=== PATIENT | female | born 1975 | race Caucasian/White ===

== ENCOUNTER 2022-09-03 11:03 | Inpatient (IN) ==
[2022-09-03] MEDS ORDERED: IOPAMIDOL 100 ML BOTTLE IV ONE (11:04)
--- NOTE | 2022-09-03 11:20 | Emergency Department Note ---
HPI General Chief complaint: Abdominal Pain Stated complaint: stomach issues Time Seen by Provider: 09/03/22 11:19 Source: patient Mode of arrival: ambulatory Limitations: no limitations History of Present Illness HPI Narrative: Narrative: Patient is a 47-year-old female with a past medical history significant for gastritis, esophagitis, and bowel obstruction who presents to the emergency department due to nausea, vomiting, abdominal pain, and diarrhea. She states that she has had pain for 3 months that she describes as feeling like a shotgun went off in her abdomen. She states that the pain is most significant in the epigastric region and is sometimes sharp and sometimes dull. She states that it is sharp when she is moving, and dull at rest. She also endorses a burning epigastric pain and burning in her chest when she is lying flat at night. She states that she has taken Maalox and this seems to improve her symptoms, but only for a brief period of time. She states that her pain does not radiate other than down in the abdomen. She states that her vomit is what she eats, and denies dark-colored vomit or dark tarry stool. She also denies blood in her stool. She denies any other concerns at this time. Related Data Home Medications Medication Instructions Recorded Confirmed trazodone 100 mg tablet 50 mg PO HS 10/06/18 09/03/22 diazepam 5 mg tablet 1 tab PO QDP 09/03/22 09/03/22 duloxetine 30 mg capsule,delayed 1 cap PO QDAY 09/03/22 09/03/22 release esomeprazole magnesium 40 mg 1 cap PO QDAY 09/03/22 09/03/22 capsule,delayed release hydroxyzine pamoate 50 mg capsule 2 cap PO BID 09/03/22 09/03/22 magnesium hydroxide 400 mg/5 mL 400 mg PO PRN PRN Indigestion 09/03/22 09/03/22 oral suspension (Milk of Magnesia) Allergies Allergy/AdvReac Type Severity Reaction Status Date / Time budesonide [From Symbicort] Allergy Intermediate Swelling Verified 09/03/22 1 1:10 of Lip/Tongue/Throat Formoterol [From Symbicort] Allergy Intermediate Swelling Verified 09/03/22 11:10 of Lip/Tongue/Throat steri-strips AdvReac Intermediate Blister Uncoded 01/21/19 22:11 Review of Systems ROS ROS Narrative: Narrative: Constitutional: Denies fever or weakness Eyes: Denies eye pain or vision change ENT ED: Denies throat pain, hearing loss or rhinorrhea Cardiovascular: Denies chest pain or edema Respiratory: Denies shortness of breath or cough Gastrointestinal: Reports abdominal pain, nausea, vomiting and diarrhea; Denies constipation, hematochezia or melena Musculoskeletal: Denies back pain or myalgia Integumentary: Denies rash or lesions Neurological: Denies headache, weakness, numbness, confusion, abnormal gait or dizziness Endocrine: Denies fatigue or polyuria Hematological/Lymphatic: Denies easy bleeding or easy bruising PFS Narrative Patient History Narrative: Narrative: Medical/Surgical/Family History All Active Problems (Updated 09/04/22 @ 08:15 by Miguel Isabel MD) Partial small bowel obstruction (Acute) Continuous severe abdominal pain (Acute) Headache (Acute) Minor head injury (Acute) Upper respiratory infection (Acute) Cellulitis (Acute) Otitis externa (Acute) Fracture of base of fifth metacarpal bone of right hand (Acute) Gastroenteritis (Acute) Methamphetamine abuse (Acute) Abdominal pain (Acute) Acute psychosis (Acute) Bipolar disorder (Acute) Self-harming behavior (Acute) Anxiety (Acute) Hallucinations of tactile sensation (Acute) Auditory hallucination (Acute) Visual hallucination (Acute) Paranoia (Acute) Medical History Anxiety Left shoulder strain Social History Smoking Status: Current every day smoker Exam Narrative Narrative: Narrative: General Limitations: no limitations General appearance: Present alert and in no apparent distress; Absent anxious, appears intoxicated or sleepy Head Head: Present atraumatic and normocephalic Eye Eye: Present EOMI; Absent scleral icterus or nystagmus ENT ENT: Present mucous membranes moist; Absent nasal congestion Neck Neck: Present full ROM; Absent tenderness Chest Chest: Present normal inspection and symmetric chest wall rise; Absent tenderness Respiratory Respiratory: Present normal lung sounds bilaterally; Absent respiratory distress or accessory muscle use Cardiovascular Cardiovascular: Present regular rate, normal rhythm and normal heart sounds Adbominal Abdominal: Present soft, tenderness, guarding and normal bowel sounds; Absent distention, rebound or rigidity Extremities Extremities: Present normal inspection and full ROM Back Back: Present normal inspection and full ROM Neurological Neurological: Present alert and oriented X3 Psychiatric Psychiatric: Present normal affect and normal mood Skin Skin: Present warm (WNL), dry and normal color Course Vital Signs Vital signs: Vital Signs Temperature 97.7 F 09/03/22 11:08 Pulse Rate 100 H 09/03/22 11:08 Respiratory Rate 16 09/03/22 11:08 Blood Pressure 121/79 09/03/22 11:08 Pulse Oximetry (%) 97 09/03/22 11:08 Oxygen Delivery Method 09/03/22 11:08 Temperature 98 F 09/04/22 08:00 Pulse Rate 59 L 09/04/22 08:00 Respiratory Rate 16 09/04/22 08:00 Blood Pressure 146/87 09/04/22 08:00 Pulse Oximetry (%) 100 09/04/22 08:00 Oxygen Delivery Method 09/04/22 08:00 MDM MDM Narrative Medical decision making narrative: Narrative: Patient is a 47-year-old female with a past medical history significant for gastritis, esophagitis, and bowel obstruction who presents to the emergency department due to nausea, vomiting, abdominal pain, and diarrhea. Differential diagnoses include gastritis, esophagitis, peptic ulcer disease, pancreatitis, liver disease, and less likely small bowel obstruction. Patient's labs are positive for mild leukocytosis. CT scan demonstrates partial small bowel obstruction. I have spoken to Dr. Cuellar about this patient and he has agreed to see and evaluate patient for admission. Lab Data Result diagrams: 09/03/22 11:26 09/04/22 05:11 Labs: Lab Results 09/03/22 09/03/22 09/03/22 Range/Units 11:26 11:26 11:36 WBC 13.4 H (4.5-11.0) K/mcL RBC 5.23 (3.59-5.38) M/mcL Hgb 14.1 (11.2-15.7) g/dL Hct 42.8 (34.1-44.9) % POC Hct (36-48) MCV 81.8 (80.0-100.0) fL MCH 27.0 (26.0-34.0) pg MCHC 32.9 (31.0-36.0) g/dL RDW 13.6 (11.5-14.5) % Plt Count 332 (140-440) K/mcL MPV 9.7 (8.8-12.5) fL Immature Gran % (Auto) 0.2 (0.0-0.5) % Neut % (Auto) 59.3 (38.0-78.0) % Lymph % (Auto) 31.1 (15.5-49.0) % [place] % (Auto) 4.4 (1.0-12.0) % Eos % (Auto) 4.4 (0.0-7.0) % Baso % (Auto) 0.6 (0.0-2.0) % Lymph # (Auto) 4.16 (1.50-4.80) K/mcL [place] # (Auto) 0.59 (0.10-0.90) K/mcL Eos # (Auto) 0.59 (0.00-0.70) K/mcL Baso # (Auto) 0.08 (0.00-0.30) K/mcL Immature Gran # 0.03 (0.00-0.05) K/mcl Absolute Neutrophils 7.93 (1.80-8.00) K/mcL VBG Lactic Acid (0.5-2.0) mmol/L POC Sodium (133-145) POC Potassium (3.3-5.1) POC Chloride (96-108) POC Total CO2 (22-30) POC BUN (6-20) POC Creatinine (0.6-1.2) POC Glucose (70-105) POC WB Ioniz Calcium (1.16-1.32) Total Bilirubin 0.5 (0.1-1.0) mg/dL Direct Bilirubin < 0.2 (0-0.3) mg/dL AST 13 (<32) U/L ALT 7 (<40) U/L Alkaline Phosphatase 84 (39-117) U/L C-Reactive Protein (0.03-0.80) mg/dL Total Protein 7.4 (5.9-8.4) gm/dL Albumin 4.5 (3.2-5.2) gm/dL Globulin 2.9 (2.2-3.7) gm/dL Lipase 36 (7-60) U/L Urine Color Yellow Urine Appearance Hazy A (Clear) Urine pH 5.0 (5.0-9.0) Ur Specific [place] 1.028 (1.000-1.035) Urine Protein 30 A (Negative) mg/dL Urine Glucose (UA) Negative (Negative) mg/dL Urine Ketones Negative (Negative) mg/dL Urine Occult Blood Negative (Negative) mg/dL Urine Nitrate Negative (Negative) Urine Bilirubin Negative (Negative) mg/dL Urine Urobilinogen Negative mg/dL Ur Leukocyte Esterase Negative (Negative) /uL Urine RBC < 1 (0-3) /hpf Urine WBC 2 (0-4) /hpf Ur Squamous Epith Cells 5 H (0-4) /hpf Urine Bacteria None (0) /hpf Hyaline Casts 3 H (0-2) /lph Urine Mucus Many A (None) /hpf Ur Culture Indicated? No 09/03/22 09/03/22 Range/Units 11:41 16:45 WBC (4.5-11.0) K/mcL RBC (3.59-5.38) M/mcL Hgb (11.2-15.7) g/dL Hct (34.1-44.9) % POC Hct 46.0 (36-48) MCV (80.0-100.0) fL MCH (26.0-34.0) pg MCHC (31.0-36.0) g/dL RDW (11.5-14.5) % Plt Count (140-440) K/mcL MPV (8.8-12.5) fL Immature Gran % (Auto) (0.0-0.5) % Neut % (Auto) (38.0-78.0) % Lymph % (Auto) (15.5-49.0) % [place] % (Auto) (1.0-12.0) % Eos % (Auto) (0.0-7.0) % Baso % (Auto) (0.0-2.0) % Lymph # (Auto) (1.50-4.80) K/mcL [place] # (Auto) (0.10-0.90) K/mcL Eos # (Auto) (0.00-0.70) K/mcL Baso # (Auto) (0.00-0.30) K/mcL Immature Gran # (0.00-0.05) K/mcl Absolute Neutrophils (1.80-8.00) K/mcL VBG Lactic Acid 0.6 (0.5-2.0) mmol/L POC Sodium 141 (133-145) POC Potassium 4.1 (3.3-5.1) POC Chloride 105 (96-108) POC Total CO2 24.0 (22-30) POC BUN 14 (6-20) POC Creatinine 0.9 (0.6-1.2) POC Glucose 95 (70-105) POC WB Ioniz Calcium 1.15 L (1.16-1.32) Total Bilirubin (0.1-1.0) mg/dL Direct Bilirubin (0-0.3) mg/dL AST (<32) U/L ALT (<40) U/L Alkaline Phosphatase (39-117) U/L C-Reactive Protein < 0.30 (0.03-0.80) mg/dL Total Protein (5.9-8.4) gm/dL Albumin (3.2-5.2) gm/dL Globulin (2.2-3.7) gm/dL Lipase (7-60) U/L Urine Color Urine Appearance (Clear) Urine pH (5.0-9.0) Ur Specific [place] (1.000-1.035) Urine Protein (Negative) mg/dL Urine Glucose (UA) (Negative) mg/dL Urine Ketones (Negative) mg/dL Urine Occult Blood (Negative) mg/dL Urine Nitrate (Negative) Urine Bilirubin (Negative) mg/dL Urine Urobilinogen mg/dL Ur Leukocyte Esterase (Negative) /uL Urine RBC (0-3) /hpf Urine WBC (0-4) /hpf Ur Squamous Epith Cells (0-4) /hpf Urine Bacteria (0) /hpf Hyaline Casts (0-2) /lph Urine Mucus (None) /hpf Ur Culture Indicated? EKG Data EKG #1: EKG attestation: Yes I reviewed and interpreted this EKG. EKG results narrative: Sinus bradycardia with a rate of 57, normal axis, UT of 200, QRS of 89, QTC of 431, T wave flattening in lead aVL, and absence of ST elevation or depression. Discharge Plan Patient/Caregiver Discharge Instructions Pt seen by RETREAD MOLD OPERATOR/PA only: No Clinical Impression: Partial small bowel obstruction Patient Disposition: Xfer As Inpt ([facility]) Discharge Date/Time: 09/03/22 18:22
[2022-09-03 11:45] LABS: POC Calcium, Ionized 1.15 (1.16-1.32); POC Creatinine 0.9 (0.6-1.2); POC Potassium 4.1 (3.3-5.1)
[2022-09-03] MEDS ORDERED: LACTATED RINGERS 1,000 ML IV ONE (11:49)
[2022-09-03 12:12] LABS: Basophils # (Auto) 0.08 K/mcL (0.00-0.30); Basophils % (Auto) 0.6 % (0.0-2.0); Eosinophils # (Auto) 0.59 K/mcL (0.00-0.70); Eosinophils % (Auto) 4.4 % (0.0-7.0); Hematocrit 42.8 % (34.1-44.9); Hemoglobin 14.1 g/dL (11.2-15.7); Lymphocytes # (Auto) 4.16 K/mcL (1.50-4.80); Lymphocytes % (Auto) 31.1 % (15.5-49.0); Mean Cell Volume 81.8 fL (80.0-100.0); Mean Corpuscular HGB Conc 32.9 g/dL (31.0-36.0); Mean Platelet Volume 9.7 fL (8.8-12.5); Monocytes # (Auto) 0.59 K/mcL (0.10-0.90); Monocytes % (Auto) 4.4 % (1.0-12.0); Neutrophils % (Auto) 59.3 % (38.0-78.0); Platelet Count 332 K/mcL (140-440); RBC 5.23 M/mcL (3.59-5.38); Red Cell Distribution Width 13.6 % (11.5-14.5); WBC 13.4 K/mcL (4.5-11.0)
[2022-09-03 12:24] LABS: Appearance,Urine HAZY (Clear); Bilirubin,Urine Negative (Negative); Color,Urine YELLOW; Culture Indicated,Urine No; Glucose,Urine (UA) Negative (Negative); Ketones,Urine Negative (Negative); Leukocyte Esterase,Urine Negative /uL (Negative); Mucus,Urine MANY /hpf; Nitrate,Urine Negative (Negative); Protein,Urine 30 mg/dL (Negative); Specific Gravity,Urine 1.028 (1.000-1.035); Urine Blood Negative (Negative); Urine Hyaline Cast 3 /lph (0-2); Urine RBC < 1 /hpf (0-3); Urine Squamous Epithelial Cell 5 /hpf (0-4); Urine WBC 2 /hpf (0-4); Urobilinogen,Urine Negative
[2022-09-03 12:55] LABS: ALT/SGPT 7 U/L (<40); AST/SGOT 13 U/L (<32); Albumin 4.5 gm/dL (3.2-5.2); Alkaline Phosphatase 84 U/L (39-117); Bilirubin,Direct < 0.2 mg/dL (0-0.3); Bilirubin,Total 0.5 mg/dL (0.1-1.0); Globulin 2.9 gm/dL (2.2-3.7)
[2022-09-03] MEDS ORDERED: FAMOTIDINE/PF 20 MG/2 ML VIAL IV ONE (13:22)
--- NOTE | 2022-09-03 13:33 | Cat Scan Report ---
CLINICAL INFORMATION: Abdominal pain COMPARISON: None. TECHNIQUE: Following enteric contrast, 80 cc of Isovue-370 were injected intravenously, and 60 seconds later, 0.625 mm helical slices were obtained from the mid heart through the subtrochanteric regions. Following reconstruction, 2.5 mm sagittal, coronal and axial reformatted images were processed and reviewed at bone, lung and soft tissue windows. Five minutes later, 0.625 mm helical slices were obtained from the mid heart through the kidneys and viewed at soft tissue windows.The exam was performed using radiation dose optimization techniques including, but not limited to, automated exposure control, adjustment of the mA and/or kV according to patient size and use of iterative reconstruction technique. FINDINGS: The lung bases show subsegmental atelectasis in the posterior lower lobes. Heart is normal in size with a small simple pericardial effusion which is unchanged. There are no pleural effusions. Abdominal images the gallbladder is surgically absent. Intrahepatic and common bile ducts are normal caliber: CBD is 6 mm. There is mild fatty change within the liver, but no focal hepatic lesions. Both kidneys, adrenal glands, spleen, pancreas and aorta, including aortic branches, are normal in size, configuration and attenuation without focal lesion. There is no free air, free fluid or adenopathy. Pelvic images show normal urinary bladder. Uterus and both ovaries are surgically absent. Small bowel is mildly dilated to a transition point in the mid ileum seen on axial image 121, coronal image 34 and sagittal image 61. There is abrupt narrowing into a decompressed distal ileum. Presumably, there is a stricture or adhesions in this region. The large bowel and stomach are grossly normal. Bone windows show no osseous abnormality IMPRESSION: 1. Partial small bowel obstruction of the mid ileum due to adhesions or stricture. 2. Small pericardial effusion-stable since 2018 Interpreted and Authenticated by: Hiren Burgos 09/03/22
[2022-09-03] MEDS ORDERED: ONDANSETRON 4 MG/2 ML VIAL IV ONE (14:04)
[2022-09-03] MEDS ORDERED: morphine 4 MG/ML VIAL IV ONE (14:04)
[2022-09-03] MEDS ORDERED: PROMETHAZINE 25 MG/ML VIAL IV PRN (16:27)
[2022-09-03] MEDS ORDERED: traZODone HCL 50 MG TABLET PO PRN ×2 (16:27→16:33)
[2022-09-03] MEDS ORDERED: ACETAMINOPHEN 325 MG TABLET PO PRN (16:27)
[2022-09-03] MEDS ORDERED: ONDANSETRON 4 MG/2 ML VIAL IV PRN (16:27)
--- NOTE | 2022-09-03 16:27 | General Surg History&Physical ---
HPI History of Present Illness Patient information: Note initiated : 09/03/22 at 4:16 pm Service Date, if different from initiated Date: [] Patient: Britany Augustin a 47 y/o F admitted on for stomach issues. Chief Complaint: [] Chief complaint: Chronic abdominal pain; recurrent nausea vomiting; partial small bowel obst History of present illness: Ms. Augustin is a 47 year old F with long history of midepigastric pain which has been present for many months. It is gotten much worse over the past few days. She initially had nausea vomiting and diarrhea and then developed primarily nausea and vomiting. She has had worsening abdominal pain. She has been unable to keep down food but has been able to tolerate liquids. When she has bowel movements they are primarily water. She has CT suggestive of partial distal small bowel obstruction but she also has dilated colon with gas and fecal matter extending to the rectum. Patient has been treated by GI for esophagitis and recurrent gastritis. She is admitted and will be treated nonoperatively. Constitutional Constitutional: Present headache(s), malaise, weakness and weight loss Cardiovascular Cardiovascular: Absent chest pain at rest, chest pain with activity, dyspnea on exertion, irregular heart rhythm, leg edema, pedal edema or rapid heart rate Respiratory Respiratory: Absent cough, dyspnea on exertion, wheezing or pain on inspirtation Gastrointestinal Gastrointestinal: Present abdominal pain, change in bowel habits, dyspepsia, heartburn, loose stools, nausea and vomiting Genitourinary Genitourinary: Absent urinary frequency, urinary hesitancy or urinary urgency Musculoskeletal Musculoskeletal: Absent arthralgias, myalgias or numbness Integumentary Integumentary: Present changing lesions, new lesions, non-healing lesions, pruritus, rash, skin ulcer, sores and unusual bruising Neurological Neurological: Present confusion Psychiatric Psychiatric: Present abnormal sleep pattern, anxiety, behavioral changes, depression, memory loss, mood swings, panic attacks, paranoia and visual hallucinations Endocrine Endocrine: Absent excessive sweating, fatigue, flushing or palpitations Hematologic/Lymphatic Hematologic/Lymphatic: Absent easy bleeding, easy bruising or lymphadenopathy Allergic/Immunologic Allergic/Immunologic: Absent tongue swelling, throat swelling, itchy eyes, uticaria, wheezing or lip swelling PFSH PFSH All Active Problems (Updated 09/03/22 @ 16:25 by Florence Cuellar MD) Continuous severe abdominal pain (Acute) Headache (Acute) Minor head injury (Acute) Upper respiratory infection (Acute) Cellulitis (Acute) Otitis externa (Acute) Fracture of base of fifth metacarpal bone of right hand (Acute) Gastroenteritis (Acute) Methamphetamine abuse (Acute) Abdominal pain (Acute) Acute psychosis (Acute) Bipolar disorder (Acute) Self-harming behavior (Acute) Anxiety (Acute) Hallucinations of tactile sensation (Acute) Auditory hallucination (Acute) Visual hallucination (Acute) Paranoia (Acute) Medical History Anxiety Left shoulder strain Social History smoking status: Current every day smoker MEDS/ALLERGIES Home Medications and Allergies Home Medications Medication Instructions Recorded Confirmed Type trazodone 100 mg tablet 50 mg PO HS 10/06/18 06/25/19 History lorazepam 1 mg tablet 1 mg PO DAILY 06/25/19 06/25/19 History ondansetron 4 mg disintegrating 4 mg SL Q4-6HP PRN Nausea #10 tabs 06/25/19 Rx tablet prochlorperazine maleate 10 mg 10 mg PO Q6H PRN Nausea #10 tabs 06/25/19 Rx tablet Allergies Allergy/AdvReac Type Severity Reaction Status Date / Time budesonide [From Symbicort] Allergy Intermediate Swelling Verified 09/03/22 11:10 of Lip/Tongue/Throat Formoterol [From Symbicort] Allergy Intermediate Swelling Verified 09/03/22 11:10 of Lip/Tongue/Throat steri-strips AdvReac Intermediate Blister Uncoded 01/21/19 22:11 Physical Examination Vital Signs Vital signs: Temp Pulse Resp BP Pulse Ox O2 Del Method 97.7 F 61 16 138/98 96 09/03/22 11:08 09/03/22 15:59 09/03/22 11:08 09/03/22 13:46 09/03/22 15:59 09/03/22 11:08 General physical appearance General physical exam: moderate distress and moderate pain Eyes Eye exam: PERRL and normal ocular movement ENT ENT exam: normal mucosa and no congestion Head Head exam IM: Present atraumatic, normal inspection and normocephalic Neck Neck exam: no masses, no bruits, trachea midline and no lymphadenopathy Cardiovascular Cardiovascular exam IM: Present normal rate and rhythm, RRR, +S1 and +S2; Absent JVD or tachycardia Respiratory Respiratory exam: normal expansion, normal respiratory effort and clear to au scultation Abdomen Abdomen: Present soft, tender, bowel sounds, organomegaly, surgical scars and wound; Absent masses or guarding Integumentary Integumentary: Present other (Extensive scarring of skin in various stages of healing involving face neck trunk and extremities) Neurologic Neurologic: Present normal coordination, normal sensation and other Musculoskeletal Musculoskeletal: Present normal gait and normal posture Psychiatric Psychiatric: Present oriented to time, oriented to person, oriented to place, speech is normal, memory intact and other (Extreme anxiety) Results Labs Result diagrams: 09/03/22 11:26 Labs: Abnormal lab results 09/03/22 09/03/22 09/03/22 Range/Units 11:26 11:36 11:41 WBC 13.4 H (4.5-11.0) K/mcL POC WB Ioniz Calcium 1.15 L (1.16-1.32) Urine Appearance Hazy A (Clear) Urine Protein 30 A (Negative) mg/dL Ur Squamous Epith Cells 5 H (0-4) /hpf Hyaline Casts 3 H (0-2) /lph Urine Mucus Many A (None) /hpf Diabetes panel 09/03/22 Range/Units 11:26 AST 13 (<32) U/L ALT 7 (<40) U/L Alkaline Phosphatase 84 (39-117) U/L Total Protein 7.4 (5.9-8.4) gm/dL Albumin 4.5 (3.2-5.2) gm/dL Calcium panel 09/03/22 Range/Units 11:26 Albumin 4.5 (3.2-5.2) gm/dL Adrenal panel 09/03/22 Range/Units 11:26 Total Bilirubin 0.5 (0.1-1.0) mg/dL AST 13 (<32) U/L ALT 7 (<40) U/L Alkaline Phosphatase 84 (39-117) U/L Total Protein 7.4 (5.9-8.4) gm/dL Albumin 4.5 (3.2-5.2) gm/dL All other labs normal. A/P Assessment and plan (1) Continuous severe abdominal pain: Status: Acute (2) Gastroenteritis: Status: Acute (3) Bipolar disorder: Status: Acute (4) Self-harming behavior: Status: Acute (5) Anxiety: Status: Acute (6) Hallucinations of tactile sensation: Status: Acute Plan IV normal saline at 150/h Reglan 10 mg IV every 6 hours Pantoprazole 40 mg IV every 12 hours Carafate slurry 1 g IV every 6 hours 2 view abdominal x-ray in the morning Continue psychotropic drugs Urine drug screen Sepsis Sepsis Identified: No Time Spent With Patient Time: Total time spent is greater than 50% in coordination of care (as documented) at patient's floor/unit and/or counseling patient:
[2022-09-03] MEDS: 0.9 % SODIUM CHLORIDE 1,000 ML IV SCH (16:48)
[2022-09-03] MEDS: LORazepam 2 MG/ML VIAL IV PRN (17:01)
[2022-09-03] MEDS: oxyCODONE HCL 5 MG TABLET PO PRN ×2 (17:01→20:53)
[2022-09-03 18:17] LABS: C-Reactive Protein < 0.30 mg/dL (0.03-0.80)
[2022-09-03] MEDS: hydrOXYzine 25 MG TABLET PO PRN (18:52)
[2022-09-03] MEDS: DIAZEPAM 5 MG TABLET PO PRN (18:52)
[2022-09-03] MEDS ORDERED: NICOTINE 14 MG PATCH TOPICAL SCH (20:00)
[2022-09-03] MEDS: DOCUSATE SODIUM 100 MG CAPSULE PO SCH (20:07)
[2022-09-03] MEDS: 0.9 % SODIUM CHLORIDE 10 ML SYRINGE IV SCH (20:53)
[2022-09-03] MEDS ORDERED: SENNOSIDES 1 TABLET PO SCH (21:00)
[2022-09-03 22:22] LABS: Amphetamine Screen,Urine None detected; Barbiturate Screen,Urine None detected; Benzodiazepines Screen,Urine Suspect positive; Cannabinoid Screen,Urine Suspect Positive; Cocaine Screen,Urine None detected; Opiate Screen,Urine Suspect Positive; Oxycodone, Urine Screen Suspect Positive; Phencyclidine Screen,Urine None detected
[2022-09-04] MEDS: 0.9 % SODIUM CHLORIDE 1,000 ML IV SCH ×2 (00:06→08:00)
[2022-09-04] MEDS: LORazepam 2 MG/ML VIAL IV PRN ×2 (00:23→09:48)
[2022-09-04] MEDS: oxyCODONE HCL 5 MG TABLET PO PRN ×4 (00:23→12:06)
[2022-09-04] MEDS: DIAZEPAM 5 MG TABLET PO PRN (05:04)
[2022-09-04] MEDS: 0.9 % SODIUM CHLORIDE 10 ML SYRINGE IV SCH (05:59)
[2022-09-04 07:13] LABS: ALT/SGPT 7 U/L (<40); AST/SGOT 14 U/L (<32); Albumin 3.5 gm/dL (3.2-5.2); Albumin/Globulin Ratio 1.5 (1.0-2.3); Alkaline Phosphatase 70 U/L (39-117); Bilirubin,Direct 0.2 mg/dL (<0.3); Blood Urea Nitrogen 10 mg/dL (6-20); Calcium 8.4 mg/dL (8.6-10.4); Carbon Dioxide 25 mmol/L (22-30); Chloride 106 mmol/L (96-108); Globulin 2.3 gm/dL (2.2-3.7); Glomerular Filtration Rate 75; Glucose 58 mg/dL (70-105); Lactate Dehydrogenase 158 U/L (135-225); Triglycerides 67 mg/dL (<150); Uric Acid 2.7 mg/dL (2.5-8.0)
[2022-09-04] MEDS: hydrOXYzine 25 MG TABLET PO PRN (07:26)
[2022-09-04] MEDS: DOCUSATE SODIUM 100 MG CAPSULE PO SCH (08:52)
[2022-09-04] MEDS ORDERED: FAMOTIDINE/PF 20 MG/2 ML VIAL IV SCH (09:00)
[2022-09-04] MEDS ORDERED: PANTOPRAZOLE 40 MG VIAL IV SCH (09:00)
[2022-09-04] MEDS ORDERED: DULoxetine 30 MG CAPSULE PO SCH (09:00)
[2022-09-04 09:32] LABS: Basophils # (Auto) 0.06 K/mcL (0.00-0.30); Basophils % (Auto) 0.6 % (0.0-2.0); Eosinophils # (Auto) 0.65 K/mcL (0.00-0.70); Eosinophils % (Auto) 6.3 % (0.0-7.0); Hemoglobin 11.9 g/dL (11.2-15.7); Lymphocytes # (Auto) 5.13 K/mcL (1.50-4.80); Lymphocytes % (Auto) 49.4 % (15.5-49.0); Mean Cell Volume 84.1 fL (80.0-100.0); Mean Corpuscular HGB Conc 32.2 g/dL (31.0-36.0); Mean Platelet Volume 9.9 fL (8.8-12.5); Monocytes # (Auto) 0.52 K/mcL (0.10-0.90); Neutrophils % (Auto) 38.5 % (38.0-78.0); Platelet Count 260 K/mcL (140-440); Red Cell Distribution Width 13.8 % (11.5-14.5); WBC 10.4 K/mcL (4.5-11.0)
[2022-09-04] MEDS ORDERED: NICOTINE 14 MG PATCH TOPICAL SCH (10:00)
--- NOTE | 2022-09-04 12:35 | XRay Report ---
CLINICAL INFORMATION: Partial small bowel obstruction COMPARISON: Abdomen and pelvic CT 09/03/2022. FINDINGS: Stomach, small large bowel appear relatively decompressed with scattered air-fluid levels. Findings more compatible ileus than bowel obstruction. There is no free air, soft tissue mass, organomegaly or pathologic calcification. IMPRESSION: Mild ileus pattern. Consider small bowel follow-through Interpreted and Authenticated by: Hiren Burgos 09/04/22
--- NOTE | 2022-09-04 13:14 | General Surgery Progress Note ---
SUBJECTIVE Subjective Patient information: Note initiated : 09/04/22 at 1:07 pm Service Date, if different from initiated Date: [] Patient: Britany Augustin 47 y/o F admitted on 09/03/22 for stomach issues. Chief Complaint: [] Principal diagnosis: Recurrent abdominal pain Interval history: Patient continues to complain of abdominal pain throughout the night. She was concerned about possible bowel obstruction but had multiple episodes of diarrhea. She did not have any abdominal distention. She was irritated that I would not operate on her abdominal discomfort. She was told that she did not have an obstruction and she did not need operation. Patient was having some increasing reflux and medication changes were considered however she signed out AMA before any of this could be instituted. At the time of her leaving the hospital as she was stable with good vital signs. Her white blood count is 10.4 and her hemoglobin is 11.9. She was advised to allow me time to adjust her medications but because of her anger she left the hospital against advice. Constitutional Vitals: Vital Signs Temp Pulse Resp BP Pulse Ox O2 Del Method 98 F 59 L 16 146/87 100 09/04/22 08:00 09/04/22 08:00 09/04/22 08:00 09/04/22 08:00 09/04/22 08:00 09/04/22 08:00 Period Temp Pulse Resp BP Sys/Robbins Pulse Ox O2 Del Method O2 Flow Rate Last 24 Hr 98 F-98.4 F 58-78 16-19 106-152/66-101 96-100 Room Air-Room Air Intake and Output 09/04/22 09/04/22 09/04/22 03:59 11:59 19:59 Intake Total 1833 1240 Output Total 1 100 Balance 1832 1140 Weight 144 lb 6.444 oz Intake & Output: Intake & Output 09/04/22 09/04/22 09/04/22 03:59 11:59 19:59 Intake Total 1833 1240 Output Total 1 100 Balance 1832 1140 Weight 144 lb 6.444 oz Intake: IV 913 1000 Sodium Chloride 0.9% 1,000 ml @ 913 1000 125 mls/hr IV .Q8H POLA Rx#: [id number] Oral 920 240 Output: # of times incontinent of urine 1 Emesis 100 Other: Meal jello Breakfast Percent of Meal Consumed 100% 50% Feeding Ability Independent Stool Size Smear Small Stool Color Brown Yellow Stool Consistency Soft Soft Liquid Liquid # Voids 1 1 # Bowel Movements 1 # of times incontinent of 1 Bowels General appearance: mild distress Head Head exam: Present atraumatic, normal inspection and normocephalic Eye Eye exam: Present EOMI and normal appearance ENT ENT exam: Present mucous membranes moist and normal exam Neck Neck exam: Present full ROM and normal inspection; Absent lymphadenopathy or tenderness Respiratory Respiratory exam: Present normal respiratory exam and CTAB Cardiovascular Cardiovascular exam: Present +S1, +S2 and tachycardia (110 and regular); Absent JVD GI/Abdominal GI/Abdominal exam: Present normal bowel sounds and tenderness (Epigastric and mid abdominal tenderness); Absent distended, hernia or organomegaly Extremities Exam Extremities exam: Present normal inspection and neurovascular intact Neurological Exam Neurological exam: Present alert, CN II-XII intact, normal gait and oriented X3; Absent motor sensory deficit Psychiatric Psychiatric exam: Present agitated, anxious and manic Additional comments: Patient has been severely agitated throughout her hospitalization. She has been resistant to therapy. Skin Additional comments: Extensive pockmarks in various stages of healing involving her face, neck, chest, back and extremities, abdomen Expanded Skin Exam Type of lesion: Present bite/sting and rash Distribution of rash: Present abdomen, back, chest, face, generalized, head, involves palms/soles, neck, thorax, LUE, RUE, RLE and LLE Description of rash: Present blisters, crusting, erythematous, indurated, papular, petechial, purpuric lesion and tenderness A/P Assessment and plan (1) Partial small bowel obstruction: Status: Acute (2) Continuous severe abdominal pain: Status: Acute (3) Gastroenteritis: Status: Acute (4) Abdominal pain: Status: Acute Qualifiers: Abdominal location: generalized Qualified Code(s): R10.84 - Generalized abdominal pain (5) Bipolar disorder: Status: Acute (6) Anxiety: Status: Acute (7) Self-harming behavior: Status: Acute Plan Patient signed out before discharge I was unable to family counselor her for follow-up plans of therapy. Time Spent With Patient Time: Total time spent is greater than 50% in coordination of care (as documented) at patient's floor/unit and/or counseling patient:
--- NOTE | 2022-09-05 09:47 | EKG ---
[facility] Test Date: 2022-09-03 Pat Name: Britany Augustin Department: ED Room: Gender: Female Production Support Manager: : 1975 Requested By: Florence Cuellar Order Number: [id number] Reading MD: Louis Childers Measurements Intervals [place] Rate: 57 P: 54 ND: 200 QRS: 33 QRSD: 89 T: 41 QT: 442 QTc: 431 Interpretive Statements Sinus rhythm Electronically Signed On 09-05-2022 9:47:15 PST by Louis Childers [id number]
[2022-09-15 16:00] LABS: Cannabinoid Confirmation Positive; Opiate Confirmation Positive
== END 2022-09-04 12:26 | disposition left against medical advice (07) | DRG 389 ==
LOC: ED 11:03 → MEDSUR 18:22
PROVIDERS: ADMIT Family Medicine Adult Medicine; ATTEND Family Medicine Adult Medicine